=== PATIENT | male | born 1965 | race African-American/Black ===

== ENCOUNTER 2017-10-06 11:39 | Inpatient (IN) | payer OTHER ==
[2017-10-06 12:49] VITALS: BMI 29.7
--- NOTE | 2017-10-06 16:18 | HP ---
Admission ROS [facility] - [facility] Chief Complaint: reqeusting rehab from alcohol and cocaine Allergies/Adverse Reactions: Allergies Allergy/AdvReac Type Severity Reaction Status Date / Time Penicillins Allergy Intermediate Hives Verified 10/06/17 13:04 History of Present Illness: 52 yo m with h/o alcohol and cocaine dependence requesting inaptient rehab after detoxifiation at [facility] Exam Limitations: No Limitations - Ebola screening Have you traveled outside of the country in the last 21 days: No (N) Have you had contact with anyone from an Ebola affected area: No Have you been sick,other than usual withdrawal symptoms: No Do you have a fever: No - Review of Systems Constitutional: No Symptoms Reported EENT: reports: No Symptoms Reported Respiratory: reports: No Symptoms reported Cardiac: reports: No Symptoms Reported GI: reports: No Symptoms Reported : reports: No Symptoms Reported Musculoskeletal: reports: No Symptoms Reported Integumentary: reports: No Symptoms Reported Neuro: reports: No Symptoms reported Endocrine: reports: No Symptoms Reported Hematology: reports: No Symptoms Reported Psychiatric: reports: No Sypmtoms Reported, Judgement Intact, Mood/Affect Appropiate, Orientated x3 Other Systems: Reviewed and Negative Patient History - Patient Medical History Hx Anemia: No Hx Asthma: Yes Hx Chronic Obstructive Pulmonary Disease (COPD): No Hx Cancer: No Hx Cardiac Disorders: No Hx Congestive Heart Failure: No Hx Hypertension: No Hx Hypercholesterolemia: No Hx Pacemaker: No HX Cerebrovascular Accident: No Hx Seizures: No Hx Dementia: No Hx Diabetes: No Hx Gastrointestinal Disorders: No Hx Liver Disease: No Hx Genitourinary Disorders: No Hx Sexually Transmitted Disorders: No Hx Renal Disease (ESRD): No Hx Thyroid Disease: No Hx Human Immunodeficiency Virus (HIV): No Hx Hepatitis C: No Hx Depression: Yes Hx Suicide Attempt: No Hx Schizophrenia: No - Patient Surgical History Past Surgical History: Yes Hx Orthopedic Surgery: Yes (septic arthritis of left knee in 2000) Anesthesia Reaction: No - PPD History Previous Implant?: Yes Date: 12/15/12 PPD to be Administered?: Yes - Reproductive History Patient is a Female of Child Bearing Age (11 -55 yrs old): No Patient : No - Smoking Cessation Smoking history: Current every day smoker Have you smoked in the past 12 months: Yes Aproximately how many cigarettes per day: 20 Hx Chewing Tobacco Use: No Initiated information on smoking cessation: Yes 'Breaking Loose' booklet given: 10/06/17 - Substance & Tx. History Hx Alcohol Use: Yes Hx Substance Use: Yes Substance Use Type: Alcohol, Cocaine Hx Substance Use Treatment: Yes (detox [facility]) - Substances Abused Cocaine Route: Inhalation Frequency: 1-3 times last 30 days Amount used: $50 Age of first use: 26 Date of Last Use: 10/02/17 Alcohol Route: Oral Frequency: Daily Amount used: 1 pint gin, 12 24 oz cans beer Age of first use: 16 Date of Last Use: 10/02/17 Family Disease History - Family Disease History Family Disease History: Other: Mother (depression) Admission Physical Exam [facility] - Vital Signs Vital Signs: Vital Signs - 24 hr 10/06/17 12:46 Temperature 96.6 F L Pulse Rate 87 Respiratory 18 Rate Blood Pressure 128/83 - Physical General Appearance: Yes: Within Normal Limits, No Apparent Distress, Nourished, Appropriately Dressed HEENTM: Yes: Within Normal Limits, EOMI, Hearing grossly Normal, Normocephalic, Normal Voice, [place], Pharynx Normal Respiratory: Yes: Within Normal Limits, Chest Non-Tender, Lungs Clear, Normal Breath Sounds, No Respiratory Distress, No Accessory Muscle Use Neck: Yes: Within Normal Limits, No masses,lesions,Nodules, Supple, Trachea in good position Breast: Yes: Breast Exam Deferred Cardiology: Yes: Within Normal Limits, Regular Rhythm, Regular Rate, S1, S2 Abdominal: Yes: Within Normal Limits, Normal Bowel Sounds, Non Tender, Flat, Soft Genitourinary: Yes: Within Normal Limits Back: Yes: Within Normal Limits, Normal Inspection Musculoskeletal: Yes: Within Normal Limits, full range of Motion, Gait Steady, Pelvis Stable Extremities: Yes: Within Normal Limits, Normal Capillary Refill, Normal Inspection, Normal Range of Motion, Non-Tender Neurological: Yes: applications programmer II-XII NML intact, Fully Oriented, Alert, Motor Strength 5/5, Normal Response, Depressed Affect Integumentary: Yes: Within Normal Limits, Normal Color, Dry, Warm, Other (dry skin from eczeam) Lymphatic: Yes: Within Normal Limits - Addiitonal Findings: no sx of withdrawal - Diagnostic (1) Eczema Current Visit: Yes Status: Acute Cleared for Admission [facility] - Detox or Rehab Claeared for Rehab Admission: Yes S Breath Alcohol Content Breath Alcohol Content: 0 Urine Drug Screen - Results Drug Screen Negative: No Urine Drug Screen Results: ROBERT-Cocaine, BZO-Benzodiazepines Inpatient Rehab Admission - Initial Determination Are CD services needed?: Yes Free of communicable disease: Yes Not in need of hospitalization: Yes - Rehab Admission Criteria Comorbidities: Yes Patient is meeting Inpatient Rehab admission criteria:: Yes
[2017-10-06] MEDS ORDERED: guaiFENesin/D-METHORPHAN HB 10 ML UNIT-DOSE CUPS PO PRN (16:19)
[2017-10-06] MEDS ORDERED: ACETAMINOPHEN 325 MG TABLET (FP) PO PRN (16:19)
[2017-10-06] MEDS ORDERED: MAG HYDROX/AL HYDROX/SIMETH 30 ML UNIT-DOSE CUP PO PRN (16:19)
[2017-10-06] MEDS ORDERED: MAGNESIUM CITRATE 300 ML BOTTLE PO PRN (16:19)
[2017-10-06] MEDS ORDERED: LOPERAMIDE HCL 2 MG CAPSULE PO PRN (16:19)
[2017-10-06] MEDS ORDERED: P-EPHED 60MG/TRIPROLIDI 2.5MG TABLET PO PRN (16:19)
[2017-10-06] MEDS ORDERED: MENTHOL/PHENOL 1 EACH UD MM PRN (16:19)
[2017-10-06] MEDS ORDERED: ALBUTEROL SO4 18 GM HFA INHALER IH SCH (16:30)
[2017-10-06] MEDS ORDERED: AMMONIUM LACTATE 12% LOTION 225 GM BOTTLE TP PRN (17:43)
[2017-10-06] MEDS ORDERED: ALBUTEROL SO4 18 GM HFA INHALER IH PRN (17:56)
[2017-10-06] MEDS: NICOTINE 14 MG/24 HOURS TOPICAL PATCH TD SCH (18:18)
[2017-10-06] MEDS: NICOTINE POLACRILEX 2 MG GUM BUC PRN (18:18)
[2017-10-06] MEDS ORDERED: TUBERCULIN PPD 5 TU/0.1ML VIAL ID ONE (18:18)
[2017-10-06] MEDS: THIAMINE HCL 100 MG TABLET (FP) PO SCH (21:21)
[2017-10-06] MEDS: hydrOXYzine PAMOATE 50 MG CAPSULE (FP) PO PRN (21:21)
[2017-10-06] MEDS: traZODone HCL 100 MG TABLET (FP) PO SCH (21:22)
[2017-10-07 03:56] LABS: URINE APPEARANCE SLCLOUDY; URINE BILIRUBIN NEGATIVE (NEGATIVE); URINE BLOOD NEGATIVE (NEGATIVE); URINE COLOR DKYELLOW; URINE GLUCOSE (UA) NEGATIVE (NEGATIVE); URINE KETONE NEGATIVE (NEGATIVE); URINE LEUK ESTERASE NEGATIVE (NEGATIVE); URINE NITRITE NEGATIVE (NEGATIVE); URINE PROTEIN NEGATIVE (NEGATIVE); URINE UROBILINOGEN NEGATIVE mg/dL (0.2-1.0)
[2017-10-07] MEDS: MAGNESIUM HYDROX 2400MG/30ML ORAL SUSPENSION 30 ML CUP PO PRN (07:29)
[2017-10-07] MEDS: FLUoxetine HCL 20 MG CAPSULE (FP) PO SCH (09:58)
[2017-10-07] MEDS: PRENATAL VITAMINS W/ FOLIC ACID TABLET (FP) PO SCH (09:58)
[2017-10-07] MEDS: NICOTINE POLACRILEX 2 MG GUM BUC PRN (09:59)
[2017-10-07] MEDS: NICOTINE 14 MG/24 HOURS TOPICAL PATCH TD SCH (09:59)
[2017-10-07 10:10] LABS: HEMATOCRIT 44.4 % (35.4-49); HEMOGLOBIN 14.4 GM/dL (11.7-16.9); MCH 27.7 pg (25.7-33.7); MCHC 32.4 g/dl (32.0-35.9); MEAN CELL VOLUME 85.5 fl (80-96); MEAN PLT VOLUME 8.1 fl (7.5-11.1); PLATELET COUNT 366 K/MM3 (134-434); RDW 13.8 % (11.9-15.9); WHITE BLOOD COUNT 8.9 K/mm3 (4.0-10.0)
[2017-10-07 10:36] LABS: CHLORIDE 106 mmol/L (98-107); POTASSIUM 4.2 mmol/L (3.5-5.1); SODIUM 140 mmol/L (136-145)
[2017-10-07 10:42] LABS: ALBUMIN 3.4 g/dl (3.4-5.0); ALK PHOS 81 U/L (45-117); ANION GAP 10 (8-16); BILIRUBIN,TOTAL 0.3 mg/dL (0.2-1.0); BLOOD UREA NITROGEN 14 mg/dL (7-18); CALCIUM 9.4 mg/dL (8.5-10.1); CO2 24 mmol/L (21-32); GLUCOSE,RANDOM 126 mg/dL (74-106); SGOT/AST 11 U/L (15-37); SGPT/ALT 29 U/L (12-78); TOT PROT 7.2 g/dl (6.4-8.2)
--- NOTE | 2017-10-07 11:27 | EKG ---
Test Reason : Blood Pressure : / mmHG Vent. Rate : 094 BPM Atrial Rate : 094 BPM P-R Int : 160 ms QRS Dur : 092 ms QT Int : 340 ms P-R-T Axes : 078 047 028 degrees QTc Int : 425 ms NORMAL SINUS RHYTHM POSSIBLE LEFT ATRIAL ENLARGEMENT LEFT VENTRICULAR HYPERTROPHY ABNORMAL ECG NO PREVIOUS ECGS AVAILABLE Confirmed by VALENTÍN LEONE, LUNA ([id number]) on 10/07/2017 11:27:06 AM Referred By: Wendie GONZALEZ Confirmed By:LUNA LAURA MD
[2017-10-07] MEDS: traZODone HCL 100 MG TABLET (FP) PO SCH (21:21)
[2017-10-07] MEDS: THIAMINE HCL 100 MG TABLET (FP) PO SCH (21:22)
[2017-10-07] MEDS: hydrOXYzine PAMOATE 50 MG CAPSULE (FP) PO PRN (21:22)
[2017-10-07] MEDS: ALBUTEROL SO4 18 GM HFA INHALER IH PRN (21:53)
[2017-10-08] MEDS: FLUoxetine HCL 20 MG CAPSULE (FP) PO SCH (09:37)
[2017-10-08] MEDS: PRENATAL VITAMINS W/ FOLIC ACID TABLET (FP) PO SCH (09:37)
[2017-10-08] MEDS: NICOTINE 14 MG/24 HOURS TOPICAL PATCH TD SCH (09:38)
[2017-10-08] MEDS: THIAMINE HCL 100 MG TABLET (FP) PO SCH (21:25)
[2017-10-08] MEDS: traZODone HCL 100 MG TABLET (FP) PO SCH (21:26)
[2017-10-08] MEDS: IBUPROFEN 400 MG TABLET (FP) PO PRN (21:27)
[2017-10-09] MEDS: FLUoxetine HCL 20 MG CAPSULE (FP) PO SCH (09:43)
[2017-10-09] MEDS: NICOTINE POLACRILEX 2 MG GUM BUC PRN (09:44)
[2017-10-09] MEDS: NICOTINE 14 MG/24 HOURS TOPICAL PATCH TD SCH (09:44)
[2017-10-09] MEDS: PRENATAL VITAMINS W/ FOLIC ACID TABLET (FP) PO SCH (09:44)
[2017-10-09] MEDS: IBUPROFEN 400 MG TABLET (FP) PO PRN ×2 (09:45→21:22)
--- NOTE | 2017-10-09 15:29 | HP ---
Psychiatrist Admission - Data Date of interview: 10/09/17 Admission source: [facility] Identifying data: Pt. is a 52 year old male, single, without kids, unemployed and currently homeless. Pt. admitted to for alcohol dependence. Medical History: Asthma Psychiatric History: Pt. denies h/o psychiatric hospitalization and suicide attempts. States he does not have an outpatient psychiatrist. Pt. states he was started on prozac and trazodone while in detox at [facility] last week.Pt. is currently taking the prozac 20mg but refused to take the trazodone. Physical/Sexual Abuse/Trauma History: Denies. Vital Signs: Vital Signs - 24 hr 10/09/17 10/09/17 10/09/17 00:30 03:30 07:50 Temperature 98.2 F Pulse Rate 102 H Respiratory 18 Rate Blood Pressure 141/88 Allergies/Adverse Reactions: Allergies Allergy/AdvReac Type Severity Reaction Status Date / Time Penicillins Allergy Intermediate Hives Verified 10/06/17 13:04 Date of last physical exam: 10/06/17 - Substance Abuse/Tx History Hx Alcohol Use: Yes (First used at 16. Reports drinking 6 packs per day. ) Hx Substance Use: Yes (Cocaine. Reports not using it often.) Substance Use Type: Cocaine Hx Substance Use Treatment: Yes ([facility]) Mental Status Exam - Mental Status Exam Alert and Oriented to: Time, Place, Person Cognitive Function: Good Patient Appearance: Well Groomed Mood: Withdrawn Affect: Mood Congruent Patient Behavior: Fatigued Speech Pattern: Delayed Voice Loudness: Mildly Soft/Quiet Thought Process: Goal Oriented Hallucinations: Denies Suicidal Ideation: Denies Homicidal Ideation: Denies Insight/Judgement: Poor Sleep: Fair Appetite: Fair Muscle strength/Tone: Normal Gait/Station: Other (Did not observe patient's gait. Pt. was laying in bed while interview was conducted.) Psychiatric Findings - Problem List ([place] 1, 2,3) (1) MDD (major depressive disorder) Current Visit: Yes Status: Acute (2) Alcohol dependence Current Visit: Yes Status: Active (3) Cocaine dependence Current Visit: Yes Status: Active - Initial Treatment Plan Initial Treatment Plan: Psychoeducation provided. Detoxification in progress. Prozac 20mg PO daily started on 10/07/2017. Will continue to monitor.
[2017-10-09] MEDS: THIAMINE HCL 100 MG TABLET (FP) PO SCH (21:21)
[2017-10-09] MEDS: traZODone HCL 100 MG TABLET (FP) PO SCH (21:21)
[2017-10-10] MEDS: ALBUTEROL SO4 18 GM HFA INHALER IH PRN ×2 (06:10→23:24)
[2017-10-10] MEDS: NICOTINE POLACRILEX 2 MG GUM BUC PRN (10:03)
[2017-10-10] MEDS: PRENATAL VITAMINS W/ FOLIC ACID TABLET (FP) PO SCH (10:03)
[2017-10-10] MEDS: FLUoxetine HCL 20 MG CAPSULE (FP) PO SCH (10:03)
[2017-10-10] MEDS: NICOTINE 14 MG/24 HOURS TOPICAL PATCH TD SCH (10:03)
[2017-10-10] MEDS: THIAMINE HCL 100 MG TABLET (FP) PO SCH (21:31)
[2017-10-10] MEDS: traZODone HCL 100 MG TABLET (FP) PO SCH (21:31)
[2017-10-11] MEDS: FLUoxetine HCL 20 MG CAPSULE (FP) PO SCH (09:55)
[2017-10-11] MEDS: NICOTINE POLACRILEX 2 MG GUM BUC PRN (09:55)
[2017-10-11] MEDS: NICOTINE 14 MG/24 HOURS TOPICAL PATCH TD SCH (09:55)
[2017-10-11] MEDS: PRENATAL VITAMINS W/ FOLIC ACID TABLET (FP) PO SCH (09:55)
[2017-10-11] MEDS: THIAMINE HCL 100 MG TABLET (FP) PO SCH (21:20)
[2017-10-11] MEDS: hydrOXYzine PAMOATE 50 MG CAPSULE (FP) PO PRN (21:20)
[2017-10-11] MEDS: traZODone HCL 100 MG TABLET (FP) PO SCH (21:20)
[2017-10-11] MEDS: TRIAMCINOLONE ACET 0.025% OINTMENT 15 GM TUBE TP SCH (21:21)
[2017-10-12] MEDS: PRENATAL VITAMINS W/ FOLIC ACID TABLET (FP) PO SCH (10:08)
[2017-10-12] MEDS: NICOTINE 14 MG/24 HOURS TOPICAL PATCH TD SCH (10:08)
[2017-10-12] MEDS: FLUoxetine HCL 20 MG CAPSULE (FP) PO SCH (10:08)
[2017-10-12] MEDS: TRIAMCINOLONE ACET 0.025% OINTMENT 15 GM TUBE TP SCH ×2 (10:08→22:30)
[2017-10-12] MEDS: NICOTINE POLACRILEX 2 MG GUM BUC PRN (10:09)
[2017-10-12] MEDS: traZODone HCL 100 MG TABLET (FP) PO SCH (21:17)
[2017-10-12] MEDS: THIAMINE HCL 100 MG TABLET (FP) PO SCH (21:17)
[2017-10-12] MEDS: ALBUTEROL SO4 18 GM HFA INHALER IH PRN (21:18)
[2017-10-13] MEDS: NICOTINE 14 MG/24 HOURS TOPICAL PATCH TD SCH (09:57)
[2017-10-13] MEDS: NICOTINE POLACRILEX 2 MG GUM BUC PRN (09:57)
[2017-10-13] MEDS: TRIAMCINOLONE ACET 0.025% OINTMENT 15 GM TUBE TP SCH ×2 (09:57→21:26)
[2017-10-13] MEDS: FLUoxetine HCL 20 MG CAPSULE (FP) PO SCH (09:57)
[2017-10-13] MEDS: PRENATAL VITAMINS W/ FOLIC ACID TABLET (FP) PO SCH (09:57)
[2017-10-13] MEDS: MAGNESIUM HYDROX 2400MG/30ML ORAL SUSPENSION 30 ML CUP PO PRN (12:55)
[2017-10-13] MEDS: hydrOXYzine PAMOATE 50 MG CAPSULE (FP) PO PRN (21:26)
[2017-10-13] MEDS: THIAMINE HCL 100 MG TABLET (FP) PO SCH (21:26)
[2017-10-13] MEDS: traZODone HCL 100 MG TABLET (FP) PO SCH (21:27)
[2017-10-14] MEDS: FLUoxetine HCL 20 MG CAPSULE (FP) PO SCH (10:08)
[2017-10-14] MEDS: PRENATAL VITAMINS W/ FOLIC ACID TABLET (FP) PO SCH (10:08)
[2017-10-14] MEDS: NICOTINE POLACRILEX 2 MG GUM BUC PRN (10:09)
[2017-10-14] MEDS: NICOTINE 14 MG/24 HOURS TOPICAL PATCH TD SCH (10:09)
[2017-10-14] MEDS: TRIAMCINOLONE ACET 0.025% OINTMENT 15 GM TUBE TP SCH ×2 (10:09→21:27)
[2017-10-14] MEDS: traZODone HCL 100 MG TABLET (FP) PO SCH (21:27)
[2017-10-14] MEDS: THIAMINE HCL 100 MG TABLET (FP) PO SCH (21:27)
[2017-10-15] MEDS: TRIAMCINOLONE ACET 0.025% OINTMENT 15 GM TUBE TP SCH ×2 (09:46→21:23)
[2017-10-15] MEDS: NICOTINE POLACRILEX 2 MG GUM BUC PRN (09:46)
[2017-10-15] MEDS: NICOTINE 14 MG/24 HOURS TOPICAL PATCH TD SCH (09:46)
[2017-10-15] MEDS: PRENATAL VITAMINS W/ FOLIC ACID TABLET (FP) PO SCH (09:46)
[2017-10-15] MEDS: FLUoxetine HCL 20 MG CAPSULE (FP) PO SCH (09:46)
[2017-10-15] MEDS: traZODone HCL 100 MG TABLET (FP) PO SCH (21:23)
[2017-10-15] MEDS: THIAMINE HCL 100 MG TABLET (FP) PO SCH (21:23)
[2017-10-15] MEDS: MAGNESIUM HYDROX 2400MG/30ML ORAL SUSPENSION 30 ML CUP PO PRN (21:23)
[2017-10-15] MEDS: hydrOXYzine PAMOATE 50 MG CAPSULE (FP) PO PRN (21:24)
[2017-10-16] MEDS: NICOTINE 14 MG/24 HOURS TOPICAL PATCH TD SCH (09:50)
[2017-10-16] MEDS: PRENATAL VITAMINS W/ FOLIC ACID TABLET (FP) PO SCH (09:50)
[2017-10-16] MEDS: NICOTINE POLACRILEX 2 MG GUM BUC PRN (09:50)
[2017-10-16] MEDS: FLUoxetine HCL 20 MG CAPSULE (FP) PO SCH (09:50)
[2017-10-16] MEDS: TRIAMCINOLONE ACET 0.025% OINTMENT 15 GM TUBE TP SCH ×2 (09:50→21:35)
[2017-10-16] MEDS: THIAMINE HCL 100 MG TABLET (FP) PO SCH (21:35)
[2017-10-16] MEDS: hydrOXYzine PAMOATE 50 MG CAPSULE (FP) PO PRN (21:35)
[2017-10-16] MEDS: traZODone HCL 100 MG TABLET (FP) PO SCH (21:35)
[2017-10-17] MEDS: TRIAMCINOLONE ACET 0.025% OINTMENT 15 GM TUBE TP SCH ×2 (09:55→21:45)
[2017-10-17] MEDS: NICOTINE 14 MG/24 HOURS TOPICAL PATCH TD SCH (09:55)
[2017-10-17] MEDS: PRENATAL VITAMINS W/ FOLIC ACID TABLET (FP) PO SCH (09:55)
[2017-10-17] MEDS: FLUoxetine HCL 20 MG CAPSULE (FP) PO SCH (09:55)
[2017-10-17] MEDS: NICOTINE POLACRILEX 2 MG GUM BUC PRN (09:56)
[2017-10-17] MEDS: hydrOXYzine PAMOATE 50 MG CAPSULE (FP) PO PRN (21:44)
[2017-10-17] MEDS: THIAMINE HCL 100 MG TABLET (FP) PO SCH (21:44)
[2017-10-17] MEDS: traZODone HCL 100 MG TABLET (FP) PO SCH (21:45)
[2017-10-18] MEDS: PRENATAL VITAMINS W/ FOLIC ACID TABLET (FP) PO SCH (09:55)
[2017-10-18] MEDS: TRIAMCINOLONE ACET 0.025% OINTMENT 15 GM TUBE TP SCH ×2 (09:55→21:30)
[2017-10-18] MEDS: NICOTINE 14 MG/24 HOURS TOPICAL PATCH TD SCH (09:55)
[2017-10-18] MEDS: FLUoxetine HCL 20 MG CAPSULE (FP) PO SCH (09:55)
[2017-10-18] MEDS: hydrOXYzine PAMOATE 50 MG CAPSULE (FP) PO PRN (21:29)
[2017-10-18] MEDS: THIAMINE HCL 100 MG TABLET (FP) PO SCH (21:29)
[2017-10-18] MEDS: MAGNESIUM HYDROX 2400MG/30ML ORAL SUSPENSION 30 ML CUP PO PRN (21:29)
[2017-10-18] MEDS: traZODone HCL 100 MG TABLET (FP) PO SCH (21:29)
[2017-10-19] MEDS: NICOTINE 14 MG/24 HOURS TOPICAL PATCH TD SCH (10:03)
[2017-10-19] MEDS: PRENATAL VITAMINS W/ FOLIC ACID TABLET (FP) PO SCH (10:03)
[2017-10-19] MEDS: FLUoxetine HCL 20 MG CAPSULE (FP) PO SCH (10:03)
[2017-10-19] MEDS: TRIAMCINOLONE ACET 0.025% OINTMENT 15 GM TUBE TP SCH ×2 (10:03→21:18)
--- NOTE | 2017-10-19 14:06 | PN ---
Psychiatric Progress Note Vital Signs: Vital Signs Period Temp Pulse Resp BP Sys/Barclay Pulse Ox Last 24 Hr 97.6 F 91 18-18 135/85 Date of Session: 10/19/17 Chief Complaint:: discharge visit HPI: Patient is addressing alcoohl, cocaine dependence comorbid MDD ROS: Eczema, HTN medically managed. Current Medications: Active Medications Generic Name Dose Route Start Last Admin Trade Name Freq PRN Reason Stop Dose Admin Acetaminophen 650 mg 10/06/17 16:19 Tylenol - PO Q4H PRN PAIN Al Hydroxide/Mg Hydroxide 30 ml 10/06/17 16:19 Mylanta Oral Suspension - PO Q6H PRN DYSPEPSIA Albuterol Sulfate 2 puff 10/07/17 21:04 10/12/17 21:18 Ventolin Hfa Inhaler - IH 2 puff Q4H PRN Administration SHORT OF BREATH/WHEEZING Eucalyptus/Menthol/Phenol/Sorbitol 1 each 10/06/17 16:19 Cepastat Lozenge - MM Q4H PRN SORE THROAT Fluoxetine HCl 20 mg 10/07/17 10:00 10/19/17 10:03 Prozac - PO 20 mg DAILY OLAYINKA Administration Guaifenesin 10 ml 10/06/17 16:19 Robitussin Dm - PO Q6H PRN COUGH Hydroxyzine Pamoate 50 mg 10/06/17 16:19 10/18/17 21:29 Vistaril - PO 50 mg Q4H PRN Administration AGITATION Ibuprofen 400 mg 10/06/17 16:19 10/09/17 21:22 Motrin - PO 400 mg Q6H PRN Administration SEVERE PAIN Lactic Acid 1 applic 10/06/17 17:43 10/06/17 18:18 Lac-Hydrin 12 TP 1 applic BID PRN Administration DRY SKIN Loperamide HCl 4 mg 10/06/17 16:19 Imodium - PO Q6H PRN DIARRHEA Magnesium Citrate 300 ml 10/06/17 16:19 Citroma - PO Q48H PRN CONSTIPATION Magnesium Hydroxide 30 ml 10/06/17 16:19 10/18/17 21:29 Milk Of Magnesia - PO 30 ml DAILY PRN Administration CONSTIPATION Nicotine 14 mg 10/06/17 16:30 10/19/17 10:03 Nicoderm Patch - TD Not Given DAILY OLAYINKA Nicotine Polacrilex 2 mg 10/06/17 16:19 10/17/17 09:56 Nicorette Gum - BUC 2 mg Q2H PRN Administration NICOTINE REPLACEMENT RX Multivit/Folic Acid/Iron 1 tab 10/07/17 10:00 10/19/17 10:03 Vitamins (Sjr) - PO 1 tab DAILY OLAYINKA Administration Pseudoephedrine/Triprolidine 1 combo 10/06/17 16:19 Actifed - PO TID PRN NASAL CONGESTION Thiamine HCl 100 mg 10/06/17 22:00 10/18/17 21:29 Vitamin B1 - PO 100 mg HS OLAYINKA Administration Trazodone HCl 200 mg 10/06/17 22:00 10/18/17 21:29 Desyrel - PO Not Given HS OLAYINKA Triamcinolone Acetonide 1 applic 10/11/17 22:00 10/19/17 10:03 Aristocort 0.025% Ointment - TP 1 applic BID OLAYIKNA Administration Current Side Effect: No Lab tests ordered: No Lab tests reviewed: Yes Provider note:: Patient will complete his treatment and met his goals on 10/20/17 , will continue to address his issues at [facility].He gained insights into his addiction, understands the negative impact of his addiction and verbalized his motivations to continue maintain abstinence and be adherent to every aspects of his aftercare plans. Patient continues to finding that Prozac effective, his mood is brighter, sleeps better and no side-effects, script provided for 30 days, patient refused scripts for trazodone , is stable for discharge tomorrow 10/20/17. Total face to face time:: 20 Mental Status Exam - Mental Status Exam Alert and Oriented to: Time, Place, Person Cognitive Function: Grossly Intact Patient Appearance: Well Groomed Mood: Hopeful Affect: Appropriate, Mood Congruent Patient Behavior: Appropriate, Cooperative Speech Pattern: Clear, Appropriate Voice Loudness: Normal Thought Process: Intact, Goal Oriented Thought Disorder: Not Present Hallucinations: Denies Suicidal Ideation: Denies Homicidal Ideation: Denies Insight/Judgement: Fair Sleep: Fair Appetite: Fair Muscle strength/Tone: Normal Gait/Station: Normal Psychiatric Treatment Plan - Problem List (1) Alcohol dependence Current Visit: Yes (2) Cocaine dependence Current Visit: Yes (3) MDD (major depressive disorder) Current Visit: Yes (4) Opioid dependence Current Visit: No (5) Eczema Current Visit: Yes (6) Essential hypertension Current Visit: No
[2017-10-19] MEDS: hydrOXYzine PAMOATE 50 MG CAPSULE (FP) PO PRN (21:17)
[2017-10-19] MEDS: THIAMINE HCL 100 MG TABLET (FP) PO SCH (21:17)
[2017-10-19] MEDS: traZODone HCL 100 MG TABLET (FP) PO SCH (21:18)
[2017-10-20 07:10] VITALS: BP 155/72; PULSE 100; TEMP 98.3
== END 2017-10-20 07:00 | disposition home or self-care (01) | DRG 772 ==
LOC: YASAS 11:39 → Y5N 14:02
PROVIDERS: ADMIT Psychiatry & Neurology Psychiatry; ATTEND Psychiatry & Neurology Psychiatry
PROC: HZ42ZZZ Group Counseling for Substance Abuse Treatment, Cognitive-Behavioral (ICD-10-PCS; principal; 2017-10-06)
DX: F11.20 Opioid dependence, uncomplicated (principal); F10.20 Alcohol dependence, uncomplicated; F17.210 Nicotine dependence, cigarettes, uncomplicated; F33.9 Major depressive disorder, recurrent, unspecified; I10 Essential (primary) hypertension; L30.9 Dermatitis, unspecified; Z59.0 Homelessness
CPT/HCPCS: 36415; 80053; 81003; 85027; 86593; 93005; 93010